=== PATIENT | female | born 1995 | race Caucasian/White ===

== ENCOUNTER 2021-09-07 17:06 | Outpatient (RCR) | payer OTHER, SELFPAY ==
--- NOTE | 2021-09-08 07:36 | PTOPEVAL ---
Thank you for referring Patti Pat to [facility].? The patient is scheduled to be seen for therapy? 2x/week for 12 visits. Please review, sign, date and return this plan of care AL. I agree with and certify that the following plan of care is medically necessary. Referring Physician Date Admitting Provider: Attending Provider: DASH MARROQUIN Referring Provider: *PT Outpatient Evaluation Start: 09/07/21 15:50 Freq: Status: Active Protocol: Document 09/07/21 15:50 [facility] (Rec: 09/07/21 18:18 [facility] [email or web address]) Therapy Assessment Status Assessment Status Assessment Status Evaluation Evaluation Information Problem Diagnosis generalized weakness Onset 09/07/2017 Subjective Information Pt reports that her legs don't Query Text:As Reported By Patient/ work like they should. Pt has Family been diagnosed with chiari malformation and experiences leg/arm weakness, neck/upper back/shoulder pain, and dizziness. She reports frequent falls (1x a week) when moving around her house and performing transfers. She has stairs in her home but she does not use them. She has a 4WW that she uses for mobility , but she doesn't walk with it , she only scoots around in it . She is looking into getting a shower chair as transfers into the shower require a lot of assistance from her partner . Additionally, they are interested in an electric wheelchair to improve her mobility in the community. She has had PT in the past frequently (about 1 bout a year) and still sometimes performs her exercises. About 4 years ago, pt reports she had a concussion and is still experiencing post-concussion syndrome as she has frequent headaches and photophobia. She also reports she was recently on a medication that she has discontinued that led to some nausea. Pt reports she is
--- NOTE | 2021-10-09 17:23 | PTOPEVAL ---
Thank you for referring Patti Pat to [facility].? The patient is scheduled to be seen for therapy? for remaining 4 visits at 1-2x/week. Please review, sign, date and return this plan of care AL. I agree with and certify that the following plan of care is medically necessary. Referring Physician Date Admitting Provider: Attending Provider: Aric Madsen, Referring Provider: Rosenda Sanchez *PT Outpatient Evaluation Start: 09/07/21 15:50 Freq: Status: Active Protocol: Document 10/09/21 15:00 [facility] (Rec: 10/09/21 17:22 [facility] [email or web address]) Therapy Assessment Status Assessment Status Assessment Status Progress Evaluation Information Problem Diagnosis generalized weakness Onset 09/07/2017 Subjective Information Pt reports that she is not Query Text:As Reported By Patient/ feeling well today and is Family experiencing fatigue over her body. Pt reports that she has been having falls about once a day for the last week. Pt denies significant injuries from these falls, but notes they seem to be happening more frequently. She reports that she is still having high difficulty with getting in and out of the shower with her 's help without a shower chair. Pain Assessment Timing of Pain Assessment Timing of Pain Assessment Pre-Treatment Self Report Self Report Pain Level 0 Pain Score Pain Score 0: Self Report Lower Extremity Muscle Strength Testing General Lower Extremity Strength Gross Lower Extremity Strength R hip flexion: 2/5 L hip flexion: 2/5 R hip abd: 3/5 L hip abd: 3/5 Rashad hip add: 2/5 R knee ext: 3/5 L knee ext: 3/5 Rashad knee flexion: 3+/5 R ankle dorsiflexion: 3/5 L ankle dorsiflexion: 2/5 Upper Extremity Muscle Strength Testing General Upper Extremity Strength Gross Upper Extremity Strength Comments Bilateral shoulder flexion: 2/ 5 Transfer Assessment Bed Transfer Assessment Bed Transfer Comments Pt transferred from 4WW to low mat table by scooting legs forward, CGA. Bed Mobility Assessment Bed Mobility Bed Mobility Comments Performs bilateral rolling
--- NOTE | 2021-10-22 18:10 | PTOPPROG ---
Evaluation Information Assessment Status Progress Diagnosis generalized weakness Onset 09/07/2017 Subjective Information Pt reports one fall recently when sliding off of her 4WW from a sitting position. She reports that this has been happening recently. She reports that she has been feeling stronger in her legs but because she feels stronger, she has been attempting more difficult tasks with some more frequent falls due to this. Assessment PT Clinical Summary Pt presents to physical therapy with mild improvements in strength, balance, and activity tolerance since her most recent progress note. She is still experiencing recent falls at home and her and her caregiver report continued difficulty when bathing as her has to pick her up from the floor. She is currently using a 4WW for mobility by sitting in the seat of the walker and scooting around with her legs. She reports decreased quality of life as she is unable to keep up with her kids for school and sports and is concerned for her condition to be able to take care of her kids and her upcoming child in February. She would benefit from a shower chair to increase her safety with bathing and reduce caregiver burden during bathing transfers. Additionally, due to her slow pace with mobility when scooting within her 4WW, she would benefit from a handicapped parking pass to reduce distance from her family car to her destination. Due to patient's limited functional mobility, she would also benefit from a formal wheelchair evaluation to assess what assistive device would be the best fit for her. This wheelchair evaluation will be scheduled for sometime next week in conjunction with [facility]. Pt will benefit from additional skilled PT to continue to improve strength, balance, endurance, and functional mobility. Plan of Care PT Services Indicated Yes Treatment Frequency and 1x week for 6 visits Duration These treatments will address the objective and functional deficits as defined above. The patient will be advanced safely and appropriately in order for the patient to progress towards his/her prior level of function. Additional exercises will be introduced and as well as a comprehensive home exercise program upon discharge, if needed, ?to ensure carryover of functional gains achieved in the clinic. This treatment plan has been reviewed and agreement upon by the patient.
--- NOTE | 2021-11-02 18:12 | PTOPPROG ---
Assessment and note entered by Georgette Green DPT Evaluation Information Assessment Status Re-evaluation Diagnosis generalized weakness Onset 09/07/2017 Subjective Information Pt presents to PT for w/c evaluation in conjunction with [facility]. She reports that she has had several falls in the last week when sliding out of her 4WW. Assessment PT Clinical Summary Session [facility] today [facility] of suitable wheelchair. ATP recommends a power mobility base due to patient's non-ambulatory status and inability to safely and functional propel manual wheelchair/scooter. ATP recommends scooter with a mount for a joystick, flip up foot support, and adjustable armrests for more easy transport. ATP also recommends a pelvic belt to decrease falling out of the AD in accordance with pt's subjective reports of frequently sliding out of 4WW. These treatments will address the objective and functional deficits as defined above. The patient will be advanced safely and appropriately in order for the patient to progress towards his/her prior level of function. Additional exercises will be introduced and as well as a comprehensive home exercise program upon discharge, if needed, ?to ensure carryover of functional gains achieved in the clinic. This treatment plan has been reviewed and agreement upon by the patient.
== END 2021-11-30 14:59 | disposition home or self-care (01) ==
LOC: CHSPT 17:06
PROVIDERS: Visit Provider Family Medicine
DX: M62.81 Muscle weakness (generalized) (principal); R26.9 Unspecified abnormalities of gait and mobility
CPT/HCPCS: 97110; 97112; 97162; 97530

== ENCOUNTER 2022-03-24 08:44 | Outpatient (CLI) | payer SELFPAY | END 2022-03-24 08:45 | disposition home or self-care (01) | LOC: CHSLAB 08:48 | PROVIDERS: PCP Nurse Practitioner; Visit Provider Nurse Practitioner | DX: O13.9 Gestational [pregnancy-induced] hypertension without significant proteinuria, unspecified trimester (principal); Z3A.00 Weeks of gestation of pregnancy not specified | CPT/HCPCS: 99199 ==

== ENCOUNTER 2024-08-15 14:54 | Outpatient (CLI) | payer MEDICARE, MEDICAID, SELFPAY ==
--- NOTE | 2024-08-15 14:00 | NEURO_ITS ---
Impression: # Complains of numbness oft hands. ? # Mild right ulnar neuropathy across the elbow. ? # Normal needle/EMG exam. ? # Patient became sick/nauseous during exam so only right upper extremity done. Nerve Conduction Studies ?Stim Site NR Peak (ms) P-T Amp (?V) Site1 Site2 Delta-P (ms) Dist (cm) Lucius (m/s) Right Median Anti Sensory (2-3nd Digit) Wrist ? 2.5 106.9 Wrist 2-3nd Digit 2.5 14.0 56 Wrist ? 2.5 103.9 Wrist 2-3nd Digit 2.5 14.0 56 Right Radial Anti Sensory (Base 1st Digit) Wrist ? 2.2 15.7 Wrist Base 1st Digit 2.2 0.0 Right Ulnar Anti Sensory (5th Digit) Wrist ? 2.3 101.4 Wrist 5th Digit 2.3 14.0 61 ?Stim Site NR Onset (ms) O-P Amp (mV) Site1 Site2 Delta-0 (ms) Dist (cm) Lucius (m/s) Right Median Motor (Abd Poll Brev) Wrist ? 3.0 3.0 Elbow Wrist 3.9 25.0 64 Elbow ? 6.9 6.1 Right Ulnar Motor (Abd Dig Minimi) Wrist ? 2.4 4.2 A Elbow Wrist 4.4 27.0 61 A Elbow ? 6.8 4.0 B Elbow Wrist 2.9 19.0 66 B Elbow ? 5.3 3.0 Electromyography ?Side Muscle Nerve Root Ins Act Fibs Amp Dur Recrt Comment Right 1stDorInt Ulnar C8-T1 Nml Nml Nml Nml Nml Right Ext Indicis Radial (Post Int) C7-8 Nml Nml Nml Nml Nml Right Ext Digitorum Radial (Post Int) C7-8 Nml Nml Nml Nml Nml Right BrachioRad Radial C5-6 Nml Nml Nml Nml Nml Right PronatorTeres Median C6-7 Nml Nml Nml Nml Nml Right Abd Poll Brev Median C8-T1 Nml Nml Nml Nml Nml Right ABD Dig Min Ulnar C8-T1 Nml Nml Nml Nml Nml Right FlexPolLong Median (Ant Int) C7-8 Nml Nml Nml Nml Nml Right Abd Poll Long Radial (Post Int) C7-8 Nml Nml Nml Nml Nml
--- OUTSIDE RECORDS SUMMARY | 2024-08-15 15:01 | XMS_ITS ---
Author Organization Unknown Address [address] [place] [address] [phone] Phone Care Team Providers Care Director Of Assisted Living Name Role Phone LOPEZ Snell Attending Unavailable WENDY PATTERSON Primary Unavailable Immunization Immunization Date Status Additional Notes Code Code System MMR 05/01/2015 Completed 03 CVX Tdap 10/01/2011 Completed 115 CVX Tdap 05/01/2015 Completed 115 CVX Tdap 12/16/2021 Completed 115 CVX Influenza, split virus, trivalent, PF 02/24/2012 Completed 140 CVX Influenza, split virus, quadrivalent, PF 03/21/2015 Completed 150 CVX Influenza, split virus, quadrivalent, preservative 2016 Completed 158 C VX Social History Type Status Start Date End Date Code Code Syst em Smoking History Never smoker (Never Smoked) [id number] SNOMED CT Sex Female Medications Medication Start Date End Date Route Frequency Dose Code Code System Medication Instructions Home Meds Famotidine 20MG Oral Tablet 05/17/2024 Unknown ORAL NEEDED 20 MILLIGRAMS 439585 RxNorm TAKE 20 MILLIGRAMS ORAL NEEDED Gabapentin 300MG Oral Capsule 05/17/2024 Unknown ORAL THREE TIMES A DAY 600 MILLIGRAMS 825360 RxNorm TAKE 600 MILLIGRAMS ORAL THREE TIMES A DAY Omeprazole 20MG Oral Capsule, Delayed Release 05/17/2024 Unknown ORAL ONCE A DAY 20 MILLIGRAMS 115799 RxNorm TAKE 20 MILLIGRAMS ORAL ONCE A DAY 19 NA Oral Tablet, Chewable 05/17/2024 Unknown ORAL ONCE A DAY 6355055 RxNorm TAKE NA ORAL ONCE A DAY MiraLAX 17GM/1Dose Oral Powder for Solution 05/17/2024 Unknown BY MOUTH 1 952723 RxNorm TAKE 1 BY MOUTH Hospital Discharge Instructions Should you have any questions prior to discharge, please contact a member of your healthcare team. If you have left the hospital and have any questions, please contact your primary care physician. Reason For Referral No Data Found Allergies and Adverse Reactions Allergy Substance Reaction Severity Start Date Concern Status Co de Code System No Known Drug Allergies Active [id number] SNOMED-CT Plan of Treatment EGD/Colonoscopy 05/17/2024 US Abdomen Complete (58130) 05/14/2024 Encounters Encounter Diagnosis Start Date Code Code Sys tem Muscle pain 12/24/2022 02568355 SNOMED-CT Personal Care Team Section Performer Name Performer Role Active Date Inactive Da YESENIA Luis PCP - Primary care physician 20232023-09-01 CAMILA CARO PCP - Primary care physician 2023-09-01 2024-04-10 Stef Downing PCP - Primary care physician 2024-04-10 2024-05-14 SULEMAN DÍAZ PCP - Primary care physician 2024-04
--- OUTSIDE RECORDS SUMMARY | 2024-08-15 15:01 | XMS_ITS ---
Author Organization Unknown Address [address] [place] [address] [phone] Phone Care Team Providers Care Medical Registrar Name Role Phone ISA CHOE Attending Unavailable SHAYY PINA Primary Unavailable Immunization Immunization Date Status Additional [...] em Smoking History Never smoker (Never Smoked) [id number] SNOMED CT Sex Female Medications Medication Start Date End Date Route Frequency Dose Code Code System Medication Instructions Home Meds Famotidine 20MG Oral Tablet 05/17/2024 Unknown ORAL NEEDED 20 MILLIGRAMS 782437 RxNorm TAKE 20 MILLIGRAMS ORAL NEEDED Gabapentin 300MG Oral Capsule 05/17/2024 Unknown ORAL THREE TIMES A DAY 600 MILLIGRAMS 339105 RxNorm TAKE 600 MILLIGRAMS ORAL THREE TIMES A DAY Omeprazole 20MG Oral Capsule, Delayed Release 05/17/2024 Unknown ORAL ONCE A DAY 20 MILLIGRAMS 641824 RxNorm TAKE 20 MILLIGRAMS ORAL ONCE A DAY 19 NA Oral Tablet, Chewable 05/17/2024 Unknown ORAL ONCE A DAY 8610912 RxNorm TAKE NA ORAL ONCE A DAY MiraLAX 17GM/1Dose Oral Powder for Solution 05/17/2024 Unknown BY MOUTH 1 362722 RxNorm TAKE 1 BY MOUTH Hospital Discharge [...] Code System No Known Drug Allergies Active 701383274 SNOMED-CT Plan of Treatment EGD/Colonoscopy 05/17/2024 US Abdomen Complete (46776) 05/14/2024 Encounters Encounter Diagnosis Start Date Code Code Sys tem Acute pharyngitis, unspecified 04/10/2024 SNOMED-CT Personal Care Team Section Performer Name Performer Role Active Date Inactive YESENIA Morton PCP - Primary care physician 20232023-09-01 CAMILA CARO PCP - Primary care physician 2023-09-01 2024-04-10 Stef Downing PCP - Primary care physician 2024-04-10 2024-05-14 SULEMAN DÍAZ PCP - Primary care physician 2024-04
--- OUTSIDE RECORDS SUMMARY | 2024-08-15 15:01 | XMS_ITS ---
Author Organization Unknown Address [address] [place] [address] [phone] Phone Care Team Providers Care E Tailer Name Role Phone SARAHI SHARMA Attending Unavailable ARJUN Cope Primary Unavailable Immunization Immunization Date Status Additional [...] em Smoking History Never smoker (Never Smoked) 711364243 SNOMED CT Sex Female Medications Medication Start Date End Date Route Frequency Dose Code Code System Medication Instructions Home Meds Famotidine 20MG Oral Tablet 05/17/2024 Unknown ORAL NEEDED 20 MILLIGRAMS 645083 RxNorm TAKE 20 MILLIGRAMS ORAL NEEDED Gabapentin 300MG Oral Capsule 05/17/2024 Unknown ORAL THREE TIMES A DAY 600 MILLIGRAMS 728214 RxNorm TAKE 600 MILLIGRAMS ORAL THREE TIMES A DAY Omeprazole 20MG Oral Capsule, Delayed Release 05/17/2024 Unknown ORAL ONCE A DAY 20 MILLIGRAMS 968453 RxNorm TAKE 20 MILLIGRAMS ORAL ONCE A DAY 19 NA Oral Tablet, Chewable 05/17/2024 Unknown ORAL ONCE A DAY 6068612 RxNorm TAKE NA ORAL ONCE A DAY MiraLAX 17GM/1Dose Oral Powder for Solution 05/17/2024 Unknown BY MOUTH 1 789871 RxNorm TAKE 1 BY MOUTH Hospital Discharge [...] Code System No Known Drug Allergies Active 544340126 SNOMED-CT Plan of Treatment EGD/Colonoscopy 05/17/2024 US Abdomen Complete (15495) 05/14/2024 Encounters Encounter Diagnosis Start Date Code Code Sys tem Essential hypertension 05/31/2024 68972395 SNOME D-CT Personal Care Team Section Performer Name Performer Role Active Date Inactive YESENIA Morton PCP - Primary care physician 20232023-09-01 CAMILA CARO PCP - Primary care physician 2023-09-01 2024-04-10 Stef Downing PCP - Primary care physician 2024-04-10 2024-05-14 SULEMAN DÍAZ PCP - Primary care physician 2024-04
--- OUTSIDE RECORDS SUMMARY | 2024-08-15 15:01 | XMS_ITS ---
Author Organization Unknown Address [address] [place] [address] [phone] Phone Care Team Providers Care Bar Waiter/Waitress Name Role Phone KARL Acosta Attending Unavailable GORDO Mota Primary Unavailable Immunization Immunization Date Status Additional [...] em Smoking History Never smoker (Never Smoked) 040216002 SNOMED CT Sex Female Medications Medication Start Date End Date Route Frequency Dose Code Code System Medication Instructions Home Meds Famotidine 20MG Oral Tablet 05/17/2024 Unknown ORAL NEEDED 20 MILLIGRAMS 937144 RxNorm TAKE 20 MILLIGRAMS ORAL NEEDED Gabapentin 300MG Oral Capsule 05/17/2024 Unknown ORAL THREE TIMES A DAY 600 MILLIGRAMS 771399 RxNorm TAKE 600 MILLIGRAMS ORAL THREE TIMES A DAY Omeprazole 20MG Oral Capsule, Delayed Release 05/17/2024 Unknown ORAL ONCE A DAY 20 MILLIGRAMS 295975 RxNorm TAKE 20 MILLIGRAMS ORAL ONCE A DAY 19 NA Oral Tablet, Chewable 05/17/2024 Unknown ORAL ONCE A DAY 3846443 RxNorm TAKE NA ORAL ONCE A DAY MiraLAX 17GM/1Dose Oral Powder for Solution 05/17/2024 Unknown BY MOUTH 1 280757 RxNorm TAKE 1 BY MOUTH Hospital Discharge [...] Code System No Known Drug Allergies Active 979710509 SNOMED-CT Plan of Treatment EGD/Colonoscopy 05/17/2024 US Abdomen Complete (87493) 05/14/2024 Encounters Encounter Diagnosis Start Date Code Code Sys tem Nausea 03/30/2024 SNOMED-CT Personal Care Team Section Performer Name Performer Role Active Date Inactive YESENIA Morton PCP - Primary care physician 20232023-09-01 CAMILA CARO PCP - Primary care physician 2023-09-01 2024-04-10 Stef Downing PCP - Primary care physician 2024-04-10 2024-05-14 SULEMAN DÍAZ PCP - Primary care physician 2024-04
--- OUTSIDE RECORDS SUMMARY | 2024-08-15 15:01 | XMS_ITS ---
Author Organization Unknown Address [address] [place] [address] [phone] Phone Care Team Providers Care Caterers Helper Name Role Phone KARL Acosta Attending Unavailable [...] em Smoking History Never smoker (Never Smoked) 997000549 SNOMED CT Sex Female Medications Medication Start Date End Date Route Frequency Dose Code Code System Medication Instructions Home Meds Famotidine 20MG Oral Tablet 05/17/2024 Unknown ORAL NEEDED 20 MILLIGRAMS 201749 RxNorm TAKE 20 MILLIGRAMS ORAL NEEDED Gabapentin 300MG Oral Capsule 05/17/2024 Unknown ORAL THREE TIMES A DAY 600 MILLIGRAMS 478012 RxNorm TAKE 600 MILLIGRAMS ORAL THREE TIMES A DAY Omeprazole 20MG Oral Capsule, Delayed Release 05/17/2024 Unknown ORAL ONCE A DAY 20 MILLIGRAMS 740381 RxNorm TAKE 20 MILLIGRAMS ORAL ONCE A DAY 19 NA Oral Tablet, Chewable 05/17/2024 Unknown ORAL ONCE A DAY 7000500 RxNorm TAKE NA ORAL ONCE A DAY MiraLAX 17GM/1Dose Oral Powder for Solution 05/17/2024 Unknown BY MOUTH 1 748005 RxNorm TAKE 1 BY MOUTH Hospital Discharge [...] Code System No Known Drug Allergies Active 667951721 SNOMED-CT Plan of Treatment EGD/Colonoscopy 05/17/2024 US Abdomen Complete (98616) 05/14/2024 Encounters Encounter Diagnosis Start Date Code Code Sys tem Other constipation 01/27/2024 SNOMED-CT Personal Care Team Section Performer Name Performer Role Active Date Inactive YESENIA Morton PCP - Primary care physician 20232023-09-01 CAMILA CARO PCP - Primary care physician 2023-09-01 2024-04-10 Stef Downing PCP - Primary care physician 2024-04-10 2024-05-14 SULEMAN DÍAZ PCP - Primary care physician 2024-04
--- OUTSIDE RECORDS SUMMARY | 2024-08-15 15:01 | XMS_ITS ---
Author Organization Unknown Address [address] [place] [address] [phone] Phone Care Team Providers Care Sueding And Buffing Machine Operator Name Role Phone KARL Acosta Attending Unavailable ARJUN Cope Primary Unavailable Immunization Immunization Date Status Additional Notes Code Code System MMR 05/01/2015 Completed 03 CVX Tdap 10/01/2011 Completed 115 CVX Tdap 05/01/2015 Completed 115 CVX Tdap 12/16/2021 Completed 115 CVX Influenza, split virus, trivalent, PF 02/24/2012 Completed 140 CVX Influenza, split virus, quadrivalent, PF 03/21/2015 Completed 150 CVX Influenza, split virus, quadrivalent, preservative 2016 Completed 158 C VX Results US ABDOMEN COMPLETE - Comple lilliam: 05/14/2024 11:58 LOINC: \TM00\\12PI\\DRAo\\BM09\ \MRHo\ [address] [address] ---------NAME--------- NUMBER SEX AGE ADMIT DISC. XRAY# F/C TYPE DENIA REES Mukund [id number] F [id number] [id number] O/P DATE OF : 1995 M/R# [id number] PH#: [phone] \MRx\ LOCATION: TRANSCRIBED: 05/14/24 10:02 US ABDOMEN COMPLETE [id number] COMPLETED: [id number] {REASON-US ABD: NAUSEA/VOMITTING PHYSICIAN: CHERIE R A D I O L O G Y R E P O R T INDICATION: NAUSEA/VOMITTING TECHNIQUE: Multiple real-time sonographic images of the abdomen were obtained. COMPARISON: None FINDINGS: The liver is homogenous in echogenicity. The liver measures 12.7 cm. No intrahepatic biliary ductal dilatation is noted. The gallbladder wall measures 0.1 cm and is unremarkable. Gallbladder sludge. No calcified gallstones. The common duct measures 0.3 cm and is unremarkable. No pericholecystic fluid is noted. Negative sonographic Burger's sign. The right kidney measures 11.2 cm. No hydronephrosis. The left kidney measures 10.7 cm. No hydronephrosis. The spleen measures 10.9 cm, within normal limits. The echogenicity is within normal limits. The pancreas is not well visualized due to obscuration from bowel gas. The visualized portions of the IVC and aorta are grossly unremarkable. IMPRESSION: 1. Gallbladder sludge. 2. No acute process. KEY PROOF READER \ITLo\ \UNDo\ \UNDx\ \ITLx\ Reviewed and Electronically Signed by: Sofia Lindsey MD Signed Date: 05/14/24 10:02 05/14/24.1004.DW .to ARJUN KOENIG via fax Social History Type Status Start Date End Date Code Code Syst em Smoking History Never smoker (Never Smoked) 032775392 SNOMED CT Sex Female Medications Medication Start Date End Date Route Frequency Dose Code Code System Medication Instructions Home Meds Famotidine 20MG Oral Tablet 05/17/2024 Unknown ORAL NEEDED 20 MILLIGRAMS 799447 RxNorm TAKE 20 MILLIGRAMS ORAL NEEDED Gabapentin 300MG Oral Capsule 05/17/2024 Unknown ORAL THREE TIMES A DAY 600 MILLIGRAMS 194048 RxNorm TAKE 600 MILLIGRAMS ORAL THREE TIMES A DAY Omeprazole 20MG Oral Capsule, Delayed Release 05/17/2024 Unknown ORAL ONCE A DAY 20 MILLIGRAMS 853056 RxNorm TAKE 20 MILLIGRAMS ORAL ONCE A DAY 19 NA Oral Tablet, Chewable 05/17/2024 Unknown ORAL ONCE A DAY 1692692 RxNorm TAKE NA ORAL ONCE A DAY MiraLAX 17GM/1Dose Oral Powder for Solution 05/17/2024 Unknown BY MOUTH 1 604391 RxNorm TAKE 1 BY MOUTH Hospital Discharge [...] Code System No Known Drug Allergies Active 425070874 SNOMED-CT Plan of Treatment EGD/Colonoscopy 05/17/2024 US Abdomen Complete (41576) 05/14/2024 Encounters Encounter Diagnosis Start Date Code Code Sys tem Disease of gallbladder, unspecified 05/14/2024 SNOMED-CT Personal Care Team Section Performer Name Performer Role Active Date Inactive YESENIA Morton PCP - Primary care physician 20232023-09-01 CAMILA CARO PCP - Primary care physician 2023-09-01 2024-04-10 Stef Downing PCP - Primary care physician 2024-04-10 2024-05-14 SULEMAN DÍAZ PCP - Primary care physician 2024-04 Imaging Narrative Notes [facility] 05/14/2024 10:04 [facility] [address] [place] [address] ---------NAME--------- NUMBER SEX AGE ADMIT DISC. XRAY# F/C TYPE DENIA REES N [id number] F [id number] [id number] O/P DATE OF : 1995 M/R# [id number] #: [phone] LOCATION: TRANSCRIBED: 05/14/24 10:02 US ABDOMEN COMPLETE 15999 COMPLETED: 18038 {REASON-US ABD: NAUSEA/VOMITTING PHYSICIAN: [facility] REPORT INDICATION: NAUSEA/VOMITTING TECHNIQUE: Multiple real-time sonographic images of the abdomen were obtained. COMPARISON: None FINDINGS: The liver is homogenous in echogenicity. The liver measures 12.7 cm. No intrahepatic biliary ductal dilatation is noted. The gallbladder wall measures 0.1 cm and is unremarkable. Gallbladder sludge. No calcified gallstones. The common duct measures 0.3 cm and is unremarkable. No pericholecystic fluid is noted. Negative sonographic Felton sign. The right kidney measures 11.2 cm. No hydronephrosis. The left kidney measures 10.7 cm. No hydronephrosis. The spleen measures 10.9 cm, within normal limits. The echogenicity is within normal limits. The pancreas is not well visualized due to obscuration from bowel gas. The visualized portions of the IVC and aorta are grossly unremarkable. IMPRESSION: 1. Gallbladder sludge. 2. No acute process. KEY PROOF READER Reviewed and Electronically Signed by: Sofia Lindsey MD Signed Date: 05/14/24 10:02 05/14/24.1004.DW .to ARJUN KOENIG via fax
--- OUTSIDE RECORDS SUMMARY | 2024-08-15 15:02 | XMS_ITS ---
Author Organization Unknown Address [address] [place] [phone] Phone Care Team Providers Care Marquetry Worker Name Role Phone GORDO Mota Attending Unavailable Immunization Immunization Date Status Additional Notes Code Code System MMR 05/01/2015 Completed 03 CVX Tdap 10/01/2011 Completed 115 CVX Tdap 05/01/2015 Completed 115 CVX Tdap 12/16/2021 Completed 115 CVX Influenza, split virus, trivalent, PF 02/24/2012 Completed 140 CVX Influenza, split virus, quadrivalent, PF 03/21/2015 Completed 150 CVX Influenza, split virus, quadrivalent, preservative 2016 Completed 158 C VX Results HGB A1C -GLYCOHEMOGLOBIN - C ollect Date/Time: 09/01/2023 15:45 [facility] ID: [id number] [address] [place] [address], [phone] LOINC: 4548-4 Test Value Unit Reference Range Code Code System Flag HGBA1C 4.9 % 4548-4 LOINC COMPREHENSIVE METABOLIC PANE L - Collect Date/Time: 09/01/2023 15:45 [facility] ID: [id number] [address] [place] [address], [phone] LOINC: 91531-8 Test Value Unit Reference Range Code Code System Flag FASTING NO BUN 12 mg/dL L=7 H=20 3094-0 LOINC CREATININE 0.80 mg/dL L=0.52 H=1.04 2160-0 LOINC GLUCOSE 84 mg/dL L=74 H=106 2345-7 LOINC SODIUM 139 mmol/L L=132 H=144 2951-2 LOINC POTASSIUM 3.5 mmol/L L=3.5 H=5.1 2823-3 LOINC CHLORIDE 104 mmol/L L=98 H=107 2075-0 LOINC CO2 25.0 mmol/L L=22.0 H=30.0 2028-9 LOINC ANION GAP 14 L=10 H=20 57728-4 LOINC OSMOLALITY 287 mOs/kG L=280 H=296 41713-4 LOINC BUN/CREAT 15.0 3097-3 LOINC CALCIUM 9.8 mg/dL L=8.3 H=10.5 49314-7 LOINC AST 23 U/L L=15 H=46 1920-8 LOINC ALT 16 U/L L=9 H=72 1742-6 LOINC ALKALINE PHOS 71 U/L L=38 H=126 6768-6 LOINC TOTAL BILI 1.9 mg/dL L=0.2 H=1.3 1975-2 LOINC H ALBUMIN 4.7 G/dL L=3.5 H=5.0 1751-7 LOINC TOTAL PROTEIN 7.5 g/L L=6.3 H=8.2 2885-2 LOINC A/G RATIO 1.7 12425-4 LOINC AGE 27 40328-2 LOINC eGFR NON-AFR 91 ml/min eGFR AFR AMER 110 ml/min TSH - Collect Date/Time: 15:45 [facility] ID: [id number] [address] [place] [address], [phone] LOINC: 84478-8 Test Value Unit Reference Range Code Code System Flag TSH. 0.904 uIU/L L=0.470 H=4.680 66624-9 LOINC SED RATE - Collect Date/Time : 09/01/2023 15:45 [facility] ID: [id number] [address] [place] [address], [phone] LOINC: Test Value Unit Reference Range Code Code System Flag SED RATE 6 mm/hr L=0 H=20 CBC W/ DIFF - Collect Date/T kaya: 09/01/2023 15:45 [facility] ID: [id number] [address] [place], [place], [phone] LOINC: 46635-6 Test Value Unit Reference Range Code Code System Flag WBC 6.2 10^3uL L=4.8 H=10.8 RBC 4.60 10^6uL L=4.20 H=5.40 HEMOGLOBIN 13.9 g/dL L=12.0 H=16.0 718-7 LOINC HEMATOCRIT 41.3 VOL% L=37.0 H=47.0 4544-3 LOINC MCV 89.8 fL L=81.0 H=99.0 MCH 30.2 pg L=27.0 H=32.0 MCHC 33.7 g/dL L=32.0 H=36.0 PLATELETS 182 10^3uL L=100 H=400 55135-9 LOINC RDW 12.0 % L=11.7 H=15.5 %GRAN 44.9 % L=40.0 H=70.0 35898-6 LOINC %LYMPH 44.7 % L=20.0 H=45.0 736-9 LOINC %MONO 7.6 % L=2.0 H=10.0 07661-7 LOINC %EOS 1.8 % L=0.0 H=6.0 713-8 LOINC %BASO 0.8 % L=0.0 H=3.0 706-2 LOINC #NEUT 2.8 10^3uL L=1.9 H=7.6 65463-4 LOINC #LYMPH 2.8 10^3uL L=0.9 H=4.9 87230-1 LOINC #MONO 0.5 10^3uL L=0.1 H=0.9 08564-8 LOINC #EOS 0.1 10^3uL L=0.0 H=0.6 712-0 LOINC #BASO 0.05 10^3uL L=0.00 H=0.10 54405-1 LOINC #IM GRANS 0.0 10^3uL L=0.0 H=7.0 05125-6 LOINC %IM GRANS 0.2 % L=0.0 H=5.0 46041-9 LOINC %NRB 0.0 L=0.0 H=0.2 59800-9 LOINC #NRB 0.000 L=0.000 H=0.012 74526-1 LOINC MANUAL DIFF NOT INDICATED RBC MORPH NOT INDICATED CRP NON SPECIFIC - Collect D ate/Time: 09/01/2023 15:45 [facility] ID: [id number] [address] [place] [address], [phone] LOINC: 1987-06 Test Value Unit Reference Range Code Code System Flag CRP-NON SPECIFIC < 5.0 mg/L L=0.0 H=10.0 1987- LOINC MAGNESIUM - Collect Date/Julián e: 09/01/2023 15:45 [facility] ID: [id number] [address] [place] [address], [phone] LOINC: 48848-6 Test Value Unit Reference Range Code Code System Flag MAGNESIUM 1.8 mg/dL L=1.6 H=2.3 46544-7 LOINC VITAMIN B-12 - Collect Date/ Time: 09/01/2023 15:45 [facility] ID: [id number] [address] [place] [address], [phone] LOINC: 2131-9 Test Value Unit Reference Range Code Code System Flag VITAMIN B12 775 pq/mL L=239 H=931 ARYA (REF) - Collect Date/Julián e: 09/01/2023 15:45 [facility] ID: [id number] [address] [place] [address], [phone] LOINC: 5048-4 Test Value Unit Reference Range Code Code System Flag ARYA by IFA RfxTiter/Pattern Negative 95546-7 LOINC FOLIC ACID (SERUM) - Collect Date/Time: 09/01/2023 15:45 [facility] ID: [id number] [address] [place], [place], [phone] LOINC: 2284-8 Test Value Unit Reference Range Code Code System Flag FOLATE 14.0 ng/mL L=2.7 H=20.0 2284-8 LOINC RA PROFILE with reflex SeroN eg RAdx4 - Collect Date/Time: 09/01/2023 15:45 [facility] ID: [id number] [address] [place] [address], [phone] LOINC: Test Value Unit Reference Range Code Code System Flag Rheumatoid Factor byTurb RDL <14 <14 87210-6 LOINC Anti-CCP Ab, IgG + IgA(RDL) <20 <20 84252-4 LOINC Reflex Information COMMENT 14.3.3 ETA, Rheum.Arthritis <0.20 <0.20 09757-1 LOINC Anti-CEP-1 Ab, IgG (RDL) <20 <20 16176-4 LOINC Anti-Sa Ab, IgG (RDL) <20 <20 74109-8 LOINC Anti-CarP Ab <20 <20 26977-2 LOINC Interpretation COMMENT NEG. RA ANTI-CCP NEGATIVE IRON PANEL - Collect Date/Ti me: 09/01/2023 15:45 [facility] ID: [id number] [address] [place] [address], [phone] LOINC: Test Value Unit Reference Range Code Code System Flag IRON 183 ug/dL L=37 H=170 2498-4 LOINC H TIBC 403 ug/dL L=265 H=497 2500-7 LOINC %SATURATION 45 % L=13 H=45 2708-6 LOINC 25 HYDROXY VITAMIN D - Colle ct Date/Time: 09/01/2023 15:45 [facility] ID: [id number] [address] [place] [address], [phone] LOINC: Test Value Unit Reference Range Code Code System Flag VITAMIN D 36.2 ng/ml L=30.0 H=100 11792-4 LOINC TOTAL T-3 (REF) - Collect Da te/Time: 09/01/2023 15:45 [facility] ID: [id number] [address] [place] [address], [phone] LOINC: 3053-6 Test Value Unit Reference Range Code Code System Flag Triiodothyronine (T3) 107 71-180 3053-6 LOINC T4 FREE - Collect Date/Time: 09/01/2023 15:45 [facility] ID: [id number] [address] [place] [address], [phone] LOINC: 3024-7 Test Value Unit Reference Range Code Code System Flag T4, FREE 1.24 ng/dL L=0.78 H=2.19 3024-7 LOINC Social History Type Status Start Date End Date Code Code Syst em Smoking History Never smoker (Never Smoked) 773466631 SNOMED CT Sex Female Medications Medication Start Date End Date Route Frequency Dose Code Code System Medication Instructions Home Meds Famotidine 20MG Oral Tablet 05/17/2024 Unknown ORAL NEEDED 20 MILLIGRAMS 325129 RxNorm TAKE 20 MILLIGRAMS ORAL NEEDED Gabapentin 300MG Oral Capsule 05/17/2024 Unknown ORAL THREE TIMES A DAY 600 MILLIGRAMS 839586 RxNorm TAKE 600 MILLIGRAMS ORAL THREE TIMES A DAY Omeprazole 20MG Oral Capsule, Delayed Release 05/17/2024 Unknown ORAL ONCE A DAY 20 MILLIGRAMS 428932 RxNorm TAKE 20 MILLIGRAMS ORAL ONCE A DAY 19 NA Oral Tablet, Chewable 05/17/2024 Unknown ORAL ONCE A DAY 1168386 RxNorm TAKE NA ORAL ONCE A DAY MiraLAX 17GM/1Dose Oral Powder for Solution 05/17/2024 Unknown BY MOUTH 1 700498 RxNorm TAKE 1 BY MOUTH Hospital Discharge [...] Code System No Known Drug Allergies Active 301407961 SNOMED-CT Plan of Treatment EGD/Colonoscopy 05/17/2024 US Abdomen Complete (22066) 05/14/2024 Encounters Encounter Diagnosis Start Date Code Code Sys tem Personal history of gestational diabetes 09/01/2023 SNOMED-CT Personal Care Team Section Performer Name Performer Role Active Date Inactive YESENIA Morton PCP - Primary care physician 20232023-09-01 CAMILA CARO PCP - Primary care physician 2023-09-01 2024-04-10 Stef Downing PCP - Primary care physician 2024-04-10 2024-05-14 SULEMAN DÍAZ PCP - Primary care physician 2024-04
--- OUTSIDE RECORDS SUMMARY | 2024-08-15 15:02 | XMS_ITS | Encounter Summary ---
Author Organization [facility] Address [address] [place] [id number] Care Team Providers Care Child Care Nurse Name Role Phone Dior Obando Primary Care Provider + Kodi Weiner RECEIVING TELLER Primary Care Provi allen Dang Mariano MD Unavailable Encounter Details Date Type Department Care Team (Late st Contact Info) Description 07/22/2018 Abstract SFL CONVERSION [address] [place] [address] , Generic Conversion, Social History Tobacco Use Types Packs/Day Years Used Date Smoking Tobacco: Never Assessed Comments Unknown Sex and Gender Information Value Date Recorded Sex Assigned at Not on file 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 Gender Identity Not on file Sexual Orientation Not on file documented as of this encounter Plan of Treatment Not on file documented as of this encounter Visit Diagnoses Not on filedocumented in this encounter Additional Health Concerns Infection Onset Date Last Indicated Resolved Time COVID-19 Rule Out 11/14/2020 11/14/2020 11/14/2020 7:23 PM CDT COVID-19 Confirmed 11/14/2020 11/14/2020 12:34 AM CDT COVID-19 Rule Out 10/08/2022 10/08/2022 10/08/2022 10:05 PM CDT documented as of this encounter Care Teams Child Care Nurse Relationship Specialty Start Date End Date Dior Obando FNP [address] [place] [phone] PCP - General NURSE PRACTITIONER 10/31/20 12/15/21 Kodi Weiner NP [address] [place] [phone] PCP - General Nurse Practitioner Family 12/16/21 Dang Mariano MD [address] [place] [address] [place] Exercise Teacher CARDIOVASCULAR DISEASE 03/16/24 documented as of this encounter
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
--- OUTSIDE RECORDS SUMMARY | 2024-08-15 15:02 | XMS_ITS ---
Author Organization Unknown Address [address] [place] [phone] Phone Care Team Providers Care Big Data Admin Name Role Phone LOPEZ Snell Attending Unavailable [...] em Smoking History Never smoker (Never Smoked) 195463339 SNOMED CT Sex Female Medications Medication Start Date End Date Route Frequency Dose Code Code System Medication Instructions Home Meds Famotidine 20MG Oral Tablet 05/17/2024 Unknown ORAL NEEDED 20 MILLIGRAMS 411032 RxNorm TAKE 20 MILLIGRAMS ORAL NEEDED Gabapentin 300MG Oral Capsule 05/17/2024 Unknown ORAL THREE TIMES A DAY 600 MILLIGRAMS 379974 RxNorm TAKE 600 MILLIGRAMS ORAL THREE TIMES A DAY Omeprazole 20MG Oral Capsule, Delayed Release 05/17/2024 Unknown ORAL ONCE A DAY 20 MILLIGRAMS 460523 RxNorm TAKE 20 MILLIGRAMS ORAL ONCE A DAY 19 NA Oral Tablet, Chewable 05/17/2024 Unknown ORAL ONCE A DAY 7124754 RxNorm TAKE NA ORAL ONCE A DAY MiraLAX 17GM/1Dose Oral Powder for Solution 05/17/2024 Unknown BY MOUTH 1 445879 RxNorm TAKE 1 BY MOUTH Hospital Discharge [...] Code System No Known Drug Allergies Active 978235700 SNOMED-CT Plan of Treatment EGD/Colonoscopy 05/17/2024 US Abdomen Complete (58065) 05/14/2024 Encounters Encounter Diagnosis Start Date Code Code Sys tem Muscle pain 11/17/2022 79474382 SNOMED-CT Personal Care Team Section Performer Name Performer Role Active Date Inactive Da YESENIA Luis PCP - Primary care physician 20232023-09-01 CAMILA CARO PCP - Primary care physician 2023-09-01 2024-04-10 Stef Downing PCP - Primary care physician 2024-04-10 2024-05-14 SULEMAN DÍAZ PCP - Primary care physician 2024-04
--- OUTSIDE RECORDS SUMMARY | 2024-08-15 15:02 | XMS_ITS ---
Author Organization Unknown Address [address] [place] [phone] Phone Care Team Providers Care Spiral Gear Generator Name Role Phone MELIZA VALDIVIA Attending Unavailable GORDO Mota Primary Unavailable Immunization [...] em Smoking History Never smoker (Never Smoked) 618973041 SNOMED CT Sex Female Medications Medication Start Date End Date Route Frequency Dose Code Code System Medication Instructions Home Meds Famotidine 20MG Oral Tablet 05/17/2024 Unknown ORAL NEEDED 20 MILLIGRAMS 685279 RxNorm TAKE 20 MILLIGRAMS ORAL NEEDED Gabapentin 300MG Oral Capsule 05/17/2024 Unknown ORAL THREE TIMES A DAY 600 MILLIGRAMS 838965 RxNorm TAKE 600 MILLIGRAMS ORAL THREE TIMES A DAY Omeprazole 20MG Oral Capsule, Delayed Release 05/17/2024 Unknown ORAL ONCE A DAY 20 MILLIGRAMS 255868 RxNorm TAKE 20 MILLIGRAMS ORAL ONCE A DAY 19 NA Oral Tablet, Chewable 05/17/2024 Unknown ORAL ONCE A DAY 2678820 RxNorm TAKE NA ORAL ONCE A DAY MiraLAX 17GM/1Dose Oral Powder for Solution 05/17/2024 Unknown BY MOUTH 1 171612 RxNorm TAKE 1 BY MOUTH Hospital Discharge [...] Code System No Known Drug Allergies Active 386950720 SNOMED-CT Plan of Treatment EGD/Colonoscopy 05/17/2024 US Abdomen Complete (69474) 05/14/2024 Encounters Encounter Diagnosis Start Date Code Code Sys tem Chest pain, unspecified 03/08/2024 SNOM ED-CT Personal Care Team Section Performer Name Performer Role Active Date Inactive YESENIA Morton PCP - Primary care physician 20232023-09-01 CAMILA CARO PCP - Primary care physician 2023-09-01 2024-04-10 Stef Downing PCP - Primary care physician 2024-04-10 2024-05-14 SULEMAN DÍAZ PCP - Primary care physician 2024-04
--- OUTSIDE RECORDS SUMMARY | 2024-08-15 15:03 | XMS_ITS | Clinical Summary ---
Author Organization [facility] Address [address] [place] [address] Care Team Providers Care Veneer Measurer Name Role Phone Kodi Weiner NP Primary Care Provi allen Dang Mariano MD Unavailable Allergies No known active allergies Medications gabapentin (NEURONTIN) 400 MG capsule Take 400 mg by mouth 3 (three) times daily. Active vitamin ( PLUS) 27-1 MG tablet Take 1 tablet by mouth daily. Active famotidine (PEPCID) 20 MG tablet TAKE 20 MILLIGRAMS ORAL NEEDED 5 Active omeprazole (PRILOSEC) 2 mg/mL Suspension oral suspension TAKE 20 MILLIGRAMS ORAL ONCE A DAY 5 Active Active Problems Problem Noted Date Diagnosed Date 39 weeks gestation of ([facility]) 2022 Gestational diabetes ([facility]) 02/21/2022 Encounter for induction of labor ([facility]) 02/21 Encounter for vaginal delivery ([facility]) 023 Perineal laceration complicating delivery ([facility]) 02/21/2022 Resolved Problems Problem Noted Date Diagnosed Date Resolved Date ([facility]) 02/18/2022 02/21/19 23 Encounters Date Type Department Care Team Description 05/31/2024 2:45 PM CDT Office Visit [facility] [address] [phone] Dang Mariano MD Heart Problem 05/31/2024 Scan [facility] [address] [place] [address] Scanned, Doc Pccl 05/30/2024 Travel 05/28/2024 Orders Only [facility] [address] [place] [address] Dang Mariano MD from Last 3 Months Family History Medical History Relation Comments No Known Problems Brother 1 No Known Problems Brother 2 No Known Problems Brother 3 Asthma Brother 4 Asthma Brother 5 No Known Problems Father Breast Cancer Maternal Grandmother Heart Attack Maternal Grandmother Diabetes Mother Hypertension Mother Irritable bowel syndrome Mother No Known Problems Paternal Grandfather No Known Problems Paternal Grandmother No Known Problems Sister 1 No Known Problems Sister 2 No Known Problems Sister 3 No Known Problems Sister 4 Relation Status Comments Brother 1 Brother 2 Alive Brother 3 Alive Brother 4 Alive Brother 5 Alive Father Maternal Grandfather Maternal Grandmother Mother Paternal Grandfather Paternal Grandmother Sister 1 Sister 2 Alive Sister 3 Alive Sister 4 Alive Social History Tobacco Use Types Packs/Day Years Used Date Smoking Tobacco: Never Smokeless Tobacco: Never Tobacco Cessation:Counseling Given: Not Answered Alcohol Use Standard Drinks/Week Comments Never 0 (1 standard drink = 0.6 oz pur e alcohol) Humiliation, Afraid, Rape, and Kick questionnair e Answer Date Recorded Within the last year, have y ou been afraid of your partner or ex-partner? No 02/18/2022 Within the last year, have y ou been humiliated or emotionally abused in other ways by your partner or ex-partner? No Within the last year, have y ou been kicked, hit, slapped, or otherwise physically hurt by your partner or ex-partner? No 02/18/2022 Within the last year, have y ou been raped or forced to have any kind of sexual activity by your partner or ex-partner? No 02/18/2022 Social Connection and Isolation Panel [NHANES] A nswer Date Recorded In a typical week, how many times do you talk on the phone with family, friends, or neighbors? Once a week 02/18/2022 How often do you get together with friends or re latives? Once a week 02/18/2022 Attends [employer] Services Not on file 02/18 Do you belong to any clubs o r organizations such as taoist groups, unions, fraternal or athletic groups, or school groups? No 02/18/2022 How often do you attend meet ings of the clubs or organizations you belong to? Never 02/18/2022 Are you , , di vorced, , never , or living with a partner? Never 02/18/2022 AUDIT-C Answer Date Recorded Q1: How often do you have a drink containing alcohol? Never 02/18/2022 Q2: How many drinks containi ng alcohol do you have on a typical day when you are drinking? Patient does not drink Q3: How often do you have si x or more drinks on one occasion? Never 02/18/2022 Overall Financial Resource Strain (CARDIA) Answe r Date Recorded How hard is it for you to pa y for the very basics like food, housing, medical care, and heating? Very hard 02/18/2022 [facility] - Occupational Stress Questionnaire Answer Date Recorded Do you feel stress - tense, restless, nervous, or anxious, or unable to sleep at night because your mind is troubled all the time - these days? Very much 02/18/2022 Exercise Vital Sign Answer Date Recorde d On average, how many days pe r week do you engage in moderate to strenuous exercise (like a brisk walk)? 0 days 02/18/2022 On average, how many minutes do you engage in exercise at this level? 0 min 02/18/2022 Hunger Vital Sign Answer Date Recorded Within the past 12 months, y ou worried that your food would run out before you got the money to buy more. Sometimes true Within the past 12 months, t he food you bought just didn't last and you didn't have money to get more. Never true 06/2022 PRAPARE - Transportation Answer Date Re corded In the past 12 months, has l ack of transportation kept you from medical appointments or from getting medications? Yes 06/2022 In the past 12 months, has l ack of transportation kept you from meetings, work, or from getting things needed for daily living? Yes 02/18/2022 Housing Stability Vital Sign Answer Prudencio e Recorded In the last 12 months, was t here a time when you were not able to pay the mortgage or rent on time? No 02/18/2022 In the last 12 months, how many places have you lived? 1 02/18/2022 In the last 12 months, was t here a time when you did not have a steady place to sleep or slept in a jail (including now)? 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 Gender Identity Not on file Sexual Orientation Not on file Last Filed Vital Signs Vital Sign Reading Time Taken Comments Blood Pressure 115/78 05/31/2024 4:03 PM CDT Pulse 85 05/31/2024 4:03 PM CDT Temperature 36.5 C (97.7 F) 10/08/2022 9:25 PM CDT Respiratory Rate 16 05/31/2024 4:03 PM CDT Oxygen Saturation 99% 05/31/2024 4:03 PM CDT Inhaled Oxygen Concentration - - Weight 58.5 kg (129 lb) 10/08/2022 9:25 PM CDT Height 154.9 cm (5' 1) 05/31/2024 4:03 PM CDT Body Mass Index 24.37 10/08/2022 9:25 PM CDT Plan of Treatment Health Maintenance Due Date Last Done Comments Annual Physical 1997 Hepatitis B Vaccines (1 of 3 - 19+ 3-dose series) 2013 COVID-19 Vaccine (2023-2 5 season) 2023 Cervical Cancer Screening Pa p Smear (Age 21 to 29) Every 3 Years 08/31/2024 08/31/2021 Cervical Cancer Screening 08/31/2024 DTaP, Tdap and Td Vaccines ( 4 - Td or Tdap) 12/17/2031 12/16/2021, 05/01/2015, 10/01/2011 Hepatitis C Completed 08/31/2021 HPV Vaccines Aged Out No longer eligi ble based on patient's age to complete this topic Meningococcal B Vaccine Aged Out No l onger eligible based on patient's age to complete this topic Meningococcal Vaccine Aged Out No diamond cesia eligible based on patient's age to complete this topic Pneumococcal Vaccine: Pediatrics (0 to 5 Years) and At-Risk Patients (6 to 49 Years) Aged Out No longer eligible b ased on patient's age to complete this topic RSV Immunizations Under 20 Months Aged Out No longer eligible b ased on patient's age to complete this topic Procedures Procedure Name Priority Date/Time Associated Diagnosis Comments ELECTROCARDIOGRAM, TRACING Routine 05/31/2024 Essential (primary) hypertension HEPATITIS C ANTIBODY Routine 08/31/2021 10:27 AM CDT CYTOPATH CERV/VAG THIN LAYER Routine 08/31/2021 7:04 AM CDT from Last 3 Months or Most Recently Relevant to Health Maintenance Results * NOT [facility] - ELECTROCARDIOGRAM, TRACING (05/31/2024) Dang Mariano MD PROCEDURES-UNRESULTED Final Resu lt * HEPATITIS C ANTIBODY (08/31/2021 10:27 AM CDT) HEPATITIS C AB NON-REACTI VE NON-REACT GREG 08/31/2021 7:28 PM CDT [facility] Comment: ANTIBODIES TO HCV NOT DETECTED. DOES NOT EXCLUDE THE POSSIBILITY OF EXPOSURE TO HCV. 08/31/2021 10:2 7 AM CDT Lesli Maddox MD LABORATORY Final Result [facility] [address] [place] [address], [id number] * Cytopath Cerv/Vag Thin Layer (08/31/2021 7:04 AM CDT) THIN PREP PAP [facility] [address] [place] [address] Department of Pathology Pathology Report CERVICAL/VAGINAL PAP SMEAR REPORT Name: NEGRITA LOZA Age: 10 1995 (Age: 25) Location: [facility] Sex: F Collected Date: 08/31/2021 Hospital #: [id number] Date Received: 09/02/2021 Date Reported: 09/03/2021 Provider: LESLI MIRANDA MD INTERPRETATION CERVICAL/ENDOCERVI ANAND: SATISFACTORY FOR EVALUATION. ENDOCERVICAL/TRANS FORMATION ZONE COMPONENT ABSENT. NEGATIVE FOR INTRAEPITHELIAL LESION OR MALIGNANCY. FUNGAL ELEMENTS MORHOLOGICALLY CONSISTENT WITH NEHEMIAS SPECIES. 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 Date of Last Menstrual Period: UNKNOWN Menstrual Status: SPECIMEN SUBMITTED CERVICAL/ENDOCERVI ANAND Specimen Received:1 Thin Prep Vial, Image Assisted Pap (SMD) Please note: The Pap smear is not a diagnostic test. It is a screening test. Negative results on combined screening (Pap test and HPV-DNA) have a high negative predictive value (99.1-100 percent) for cervical cancer. The pap test is not effective in detecting cervical adenocarcinoma. [facility] 08/31/2021 7:04 AM CDT 09/02/2021 7:04 AM CDT Comment:CERVICAL/ENDOCERVICA L us Lesli Maddox MD PATHOLOGY/CYTOLOGY ORDERABLES Final Result [facility] [address] [place] [address], from Last 3 Months or Most Recently Relevant to Health Maintenance Insurance AETNA AETNA Advance Directives * Full Code (Latest Code Status on File) Date Activated Date Inactivated Comments 02/18/2022 5:38 PM 02/21/2022 7:15 PM Care Teams Veneer Measurer Relationship Specialty Start Date End Date Kodi Weiner NP [address] [place] [phone] PCP - General Nurse Practitioner Family 12/16/21 Dang Mariano MD [address] [place] [address] [place] [employer] CARDIOVASCULAR DISEASE 03/16/24
--- OUTSIDE RECORDS SUMMARY | 2024-08-15 15:03 | XMS_ITS ---
Author Organization Unknown Address [id number] [place] [phone] Phone Care Team Providers Care Coffee Grower Name Role Phone CECI Barrientos Attending Unavailable MANDO HAHN CRNA Unavailable GORDO Mota Primary Unavailable Immunization Immunization Date Status Additional Notes Code Code System MMR 05/01/2015 Completed 03 CVX Tdap 10/01/2011 Completed 115 CVX Tdap 05/01/2015 Completed 115 CVX Tdap 12/16/2021 Completed 115 CVX Influenza, split virus, trivalent, PF 02/24/2012 Completed 140 CVX Influenza, split virus, quadrivalent, PF 03/21/2015 Completed 150 CVX Influenza, split virus, quadrivalent, preservative 2016 Completed 158 C VX Results TEST URINE - Colle ct Date/Time: 05/17/2024 08:47 [facility] ID: [id number] [place] [address], [id number] LOINC: Test Value Unit Reference Range Code Code System Flag URINE PREG NEGATIVE Social History Type Status Start Date End Date Code Code Syst em Smoking History Never smoker (Never Smoked) 222657385 SNOMED CT Sex Female Vital Signs Vital Sign Value Unit [place] Value [place] Unit Date/Time Recent/Initial? Code Code System Body Mass Index 22.30 kg/m2 05/17/2024 08:40 Most Recent 40813 -5 LOINC Body Mass Index 22.30 kg/m2 05/02/2024 14:44 Initial 67249 -5 LOINC Systolic Blood Pressure 122 mm[Hg] 05/17/2024 09:03 Initial 8480- 6 LOINC Diastolic Blood Pressure 85 mm[Hg] 05/17/2024 09:03 Initial 8462- 4 LOINC Body Surface Area 1.52 m2 05/17/2024 08:40 Most Recent 3140- 1 LOINC Body Surface Area 1.52 m2 05/02/2024 14:44 Initial 3140- 1 LOINC Height 154.940 0 cm 61.00 in 05/17/2024 08:40 Most Recent 8302- 2 LOINC Height 154.940 0 cm 61.00 in 05/02/2024 14:44 Initial 8302- 2 INC O2 Saturation 100 % 2024 09:03 Initial 85902 -5 INC Pulse 76.0 /min 05/17/2024 09:03 Initial 8867- 4 LOINC Respiration 16 /min 05/18/19 09:03 Initial 9279- 1 INC Temperature 36.6 [place] 97.8 F 05/18/19 09:03 Initial 8310- 5 LOINC Weight 53.52 kg 118.00 lbs 05/17/2024 08:40 Most Recent 43017 -7 INC Weight 53.52 kg 118.00 lbs 05/02/2024 14:44 Initial 52932 -7 [facility] Medications Medication Start Date End Date Route Frequency Dose Code Code System Medication Instructions Home Meds Famotidine 20MG Oral Tablet 05/17/2024 Unknown ORAL NEEDED 20 MILLIGRAMS 115853 RxNorm TAKE 20 MILLIGRAMS ORAL NEEDED Gabapentin 300MG Oral Capsule 05/17/2024 Unknown ORAL THREE TIMES A DAY 600 MILLIGRAMS 158136 RxNorm TAKE 600 MILLIGRAMS ORAL THREE TIMES A DAY Omeprazole 20MG Oral Capsule, Delayed Release 05/17/2024 Unknown ORAL ONCE A DAY 20 MILLIGRAMS 549116 RxNorm TAKE 20 MILLIGRAMS ORAL ONCE A DAY 19 NA Oral Tablet, Chewable 05/17/2024 Unknown ORAL ONCE A DAY 4272105 RxNorm TAKE NA ORAL ONCE A DAY MiraLAX 17GM/1Dose Oral Powder for Solution 05/17/2024 Unknown BY MOUTH 1 138866 RxNorm TAKE 1 BY MOUTH Hospital Discharge Instructions Should you have any questions prior to discharge, please contact a member of your healthcare team. If you have left the hospital and have any questions, please contact your primary care physician. Reason For Referral No Data Found Procedures Procedure Name Date Status Code Code Syste m Tonsils and adenoids completed 430966229 SNOM EDCT Extraction of wisdom tooth completed 68629986 SNOMEDCT Colonoscopy, flexible; diagn ostic, including collection of specimen(s) by 05/17/2024 completed 25407 CPT Esophagogastroduodenoscopy, flexible, transoral; diagnostic, including col 05/17/2024 completed 82890 CPT Anesthesia for combined uppe r and lower gastrointestinal endoscopic proced 05/17/2024 completed 34657 CPT Allergies and Adverse Reactions Allergy Substance Reaction Severity Start Date Concern Status Co de Code System No Known Drug Allergies Active 626330987 SNOMED-CT Plan of Treatment EGD/Colonoscopy 05/17/2024 US Abdomen Complete (48035) 05/14/2024 Encounters Encounter Diagnosis Start Date Code Code Sys tem Constipation, unspecified 05/17/2024 SN OMED-CT Personal Care Team Section Performer Name Performer Role Active Date Inactive YESENIA Morton PCP - Primary care physician 20232023-09-01 CAMILA CARO PCP - Primary care physician 2023-09-01 2024-04-10 Stef Downing PCP - Primary care physician 2024-04-10 2024-05-14 SULEMAN DÍAZ PCP - Primary care physician 2024-04 Procedures Notes
== END 2024-08-15 14:55 | disposition home or self-care (01) ==
PROVIDERS: PCP Family Medicine; Visit Provider Registered Nurse
DX: G56.21 Lesion of ulnar nerve, right upper limb (principal)
CPT/HCPCS: 95886; 95909

== ENCOUNTER 2024-10-24 12:31 | Outpatient (CLI) | payer MEDICARE, MEDICAID, SELFPAY ==
--- NOTE | 2024-10-24 13:15 | NEURO_ITS ---
Impression: # Non-diabetic complains of numbness and tingling of left upper extremity. # No Carpal Tunnel Syndrome or Ulnar Neuropathy. # Normal Needle/ EMG exam. # Clinical correlation recommended. Nerve Conduction Studies ?Stim Site NR Peak (ms) P-T Amp (?V) Site1 Site2 Delta-P (ms) Dist (cm) Lucius (m/s) Left Median Anti Sensory (2-3nd Digit) Wrist ? 3.3 30.7 Wrist 2-3nd Digit 3.3 14.0 42 Wrist ? 2.9 30.1 Wrist 2-3nd Digit 3.3 14.0 42 Left Radial Anti Sensory (Base 1st Digit) Wrist ? 1.7 21.6 Wrist Base 1st Digit 1.7 0.0 Left Ulnar Anti Sensory (5th Digit) Wrist ? 2.4 45.5 Wrist 5th Digit 2.4 14.0 58 ?Stim Site NR Onset (ms) O-P Amp (mV) Site1 Site2 Delta-0 (ms) Dist (cm) Lucius (m/s) Left Median Motor (Abd Poll Brev) Wrist ? 2.2 2.4 Elbow Wrist 5.1 28.0 55 Elbow ? 7.3 3.4 Left Ulnar Motor (Abd Dig Minimi) Wrist ? 2.4 5.5 A Elbow Wrist 3.9 26.0 67 A Elbow ? 6.3 5.0 B Elbow Wrist 3.3 20.0 61 B Elbow ? 5.7 5.2 F Wave Studies ?NR F-Lat (ms) L-R F-Lat (ms) Left Median (Mrkrs) (Abd Poll Brev) ? 23.15 Left Ulnar (Mrkrs) (Abd Dig Min) ? 21.25 Electromyography ?Side Muscle Nerve Root Ins Act Fibs Amp Dur Recrt Comment Left 1stDorInt Ulnar C8-T1 Nml Nml Nml Nml Nml Left Ext Indicis Radial (Post Int) C7-8 Nml Nml Nml Nml Nml Left Ext Digitorum Radial (Post Int) C7-8 Nml Nml Nml Nml Nml Left BrachioRad Radial C5-6 Nml Nml Nml Nml Nml Left PronatorTeres Median C6-7 Nml Nml Nml Nml Nml Left Abd Poll Brev Median C8-T1 Nml Nml Nml Nml Nml Left ABD Dig Min Ulnar C8-T1 Nml Nml Nml Nml Nml Left FlexPolLong Median (Ant Int) C7-8 Nml Nml Nml Nml Nml Left Abd Poll Long Radial (Post Int) C7-8 Nml Nml Nml Nml Nml Left Biceps Musculocut C5-6 Nml Nml Nml Nml Nml Left Triceps Radial C6-7-8 Nml Nml Nml Nml Nml Left Deltoid Axillary C5-6 Nml Nml Nml Nml Nml
== END 2024-10-24 12:32 | disposition home or self-care (01) ==
LOC: ANHNEURO 12:32
PROVIDERS: PCP Family Medicine; Visit Provider Family Medicine
DX: R20.2 Paresthesia of skin (principal); R20.0 Anesthesia of skin
CPT/HCPCS: 95886; 95909